=== PATIENT | female | born 1950 | race Caucasian/White ===

== ENCOUNTER → 2017-09-24 | Outpatient (CLI) | payer OTHER ==
[~2017-09-24] MED LIST: PTU50 PO; ZFRODT4 SL
--- NOTE | 2017-09-24 15:21 | MAMMOGRAPHY REPORT ---
UNILATERAL LEFT DIGITAL DIAGNOSTIC MAMMOGRAM TOMOSYNTHESIS AND TARGETED LEFT ULTRASOUND: 09/24/2017 CLINICAL HISTORY: Callback from screening mammogram for left breast asymmetry. TECHNIQUE: Breast tomosynthesis in addition to standard 2D mammography was performed. Spot compress ion left CC 2-D and tomosynthesis images and full-field left MLO tomosynthesis images including C vie ws were obtained. COMPARISON: Comparison is made to exams dated: 09/16/2017 mammogram, 07/23/2012 mammogram, 12/26/2010 [facility], 06/14/2008, and 12/29/2006. BREAST COMPOSITION: There are scattered areas of fibroglandular density in the left breast. FINDINGS: Spot compression views demonstrate a round circumscribed 4 mm mass within the left lower i nner quadrant anteriorly. Additionally, there are ill-defined asymmetries seen within the left lower inner quadrant more posteriorly, best seen on the tomosynthesis images, one measuring 11 mm and the other measuring 5 mm. Targeted ultrasound was performed of the left lower inner quadrant in the region of the mammographic asymmetries. In the left breast at 9:00, 5 cm from the nipple, there is a superficial circumscribed round hypoechoic 2 x 2 mm mass. Ill-defined hyperechoic tissue is seen surrounding the mass. Additio darby, there are other ill-defined hyperechoic areas seen within the adjacent 9:00 breast, some of wh ich contain internal hypoechoic regions. In the left breast at 9:00, approximately 3 cm from the nip ple, there is an area of ill-defined 9 x 10 mm hyperechoic tissue with a central 6 mm hypoechoic rustam on. These areas correspond with the mammographic asymmetries and have the sonographic appearance of fat necrosis. On questioning, the patient cannot clearly remember any trauma to this region. Findin gs are probably benign and likely represent fat necrosis. IMPRESSION: ACR-BI-RADS CATEGORY 3: PROBABLY BENIGN, TARGETED ULTRASOUND ACR-BI-RADS CATEGORY 3: PRO BABLY BENIGN Mammographic asymmetries seen within the left medial breast, with corresponding mixed echogenicity ar eas seen in the left 9:00 breast on ultrasound which have the sonographic appearance of fat necrosis. The patient denies any known trauma to this region. Findings are probably benign and likely repres ent fat necrosis. Recommend follow-up diagnostic tomosynthesis mammograms and possible ultrasound of the left breast in 6 months to reevaluate. The patient has been verbally notified of the results. Approximately 10% of breast cancers are not detected with mammography. A negative mammographic report should not delay biopsy if a clinically suggestive mass is present. Anayeli eVga M.D. ah/:09/24/2017 10:20:57 Home Health Care Coordinator: Rocio BO)(Christopher), [facility] letter sent: Follow Up Recommended 3 BI-RADS Code: ACR-BI-RADS Category 3: Probably Benign Ultrasound BI-RADS: ACR-BI-RADS Category 3: Pr obably Benign
== END | disposition home or self-care (01) ==
LOC: C.MAMM 09:34
PROVIDERS: ATTEND Physician Assistant
DX: R92.8 Other abnormal and inconclusive findings on diagnostic imaging of breast (principal)